=== PATIENT | male | born 1950 | race Caucasian/White ===

== ENCOUNTER → 2016-07-03 | Outpatient (CLI) | payer MEDICARE, OTHER ==
[~2016-07-03] MED LIST: ~No Medications
== END | disposition home or self-care (01) ==
LOC: CDC 10:02
DX: R94.31 Abnormal electrocardiogram [ECG] [EKG] (principal); M75.121 Complete rotator cuff tear or rupture of right shoulder, not specified as traumatic; Z91.041 Radiographic dye allergy status
CPT/HCPCS: 93000